=== PATIENT | male | born 1955 | race African-American/Black ===

== ENCOUNTER 2019-03-18 14:11 | Emergency (ER) | payer MEDICARE, OTHER ==
[~2019-03-18] VITALS: Ht 172.7 cm; Wt 82.4 kg
[2019-03-18] MEDS ORDERED: ALTEPLASE 100MG/VIAL IV NR (15:07)
[2019-03-18] MEDS ORDERED: IOHEXOL-350 100 ML BOTTLE ONE (15:09)
[2019-03-18] MEDS ORDERED: ALTEPLASE IV NR (15:11)
[2019-03-18] MEDS ORDERED: CONTAINER EMPTY IV NR (15:11)
[2019-03-18 15:27] LABS: BASOPHILS % 0.6 % (0.0-2.0); EOSINOPHILS % 1.8 % (0.0-5.0); HEMATOCRIT. 38.3 % (42.0-52.0); HEMOGLOBIN. 12.5 g/dL (14.0-18.0); LYMPHOCYTES % 22.4 % (20.0-50.0); MEAN CORPUSCULAR HEMOGLOBIN 26.6 pg (28.0-32.0); MEAN CORPUSCULAR VOLUME 81.5 fL (80.0-94.0); MONOCYTES % 9.1 % (2.0-8.0); NEUTROPHILS % 66.1 % (40.0-76.0); PLATELET 182 x1000/uL (130-400); RED CELL DISTRIBUTION WIDTH 14.7 % (11.6-14.6)
[2019-03-18 15:28] LABS: INR 1.1; PROTHROMBIN TIME 11.4 sec (9.6-11.0)
[2019-03-18 15:29] LABS: CHLORIDE 106 mEq/L (98-107)
[2019-03-18] MEDS ORDERED: ONDANSETRON HCL 4MG/2ML INJ IV ONE (15:30)
[2019-03-18] MEDS ORDERED: *NO ASPIRIN X 24 HOURS XX SCH (15:30)
[2019-03-18 15:35] LABS: ETHANOL BLOOD < 10 mg/dL
[2019-03-18 15:38] LABS: LDL CHOLESTEROL 123 mg/dL (5-100)
[2019-03-18 16:52] LABS: CLARITY URINE CLEAR (CLEAR); COLOR URINE YELLOW (YELLOW); KETONES URINE TRACE (NEGATIVE); LEUKOCYTE ESTERASE URINE NEGATIVE (NEGATIVE); NITRITE URINE NEGATIVE (NEGATIVE); OCCULT BLOOD URINE NEGATIVE (NEGATIVE); PH URINE 7.5 (4.5-8.0); PROTEIN URINE TRACE (NEGATIVE); SPECIFIC GRAVITY URINE 1.076 (1.005-1.030); UROBILINOGEN URINE 0.2 E.U./dL (0.2-1.0)
[2019-03-18 17:08] LABS: *AMPHETAMINES SCREEN URINE NEGATIVE (NEGATIVE); *BARBITURATES SCREEN URINE NEGATIVE (NEGATIVE); *BENZODIAZEPINES SCREEN URINE NEGATIVE (NEGATIVE); *COCAINE SCREEN URINE NEGATIVE (NEGATIVE); CANNABINOID URINE SCREEN NEGATIVE (NEGATIVE)
[2019-03-18 17:09] LABS: METHADONE URINE SCREEN NEGATIVE (NEGATIVE); OPIATES URINE SCREEN NEGATIVE (NEGATIVE); PHENCYCLIDINE URINE SCREEN NEGATIVE (NEGATIVE)
[2019-03-18] MEDS ORDERED: METOCLOPRAMIDE HCL 10MG/2ML VIAL IV ONE (18:15)
[2019-03-18 18:27] VITALS: BP 132/81
== END 2019-03-18 18:44 | disposition short-term general hospital (02) ==
LOC: ER 14:11 → CANBEDREQ 22:38
DX: I63.9 Cerebral infarction, unspecified (principal)
CPT/HCPCS: 36415; 37195; 70450; 70496; 71045; 80053; 80305; 80320; 81003; 82962; 83721; 84484; 85025; 85610; 93005; 96374; 96375; 99291; J2405; J2765; J2997; Q9967; J7060; G0480